=== PATIENT | male | born 2000 | race Caucasian/White ===

== ENCOUNTER 2024-08-09 16:12 | Emergency (ER) | payer OTHER, SELFPAY ==
[2024-08-09 16:21] VITALS: BP 154/86
[2024-08-09 18:18] VITALS: BP 147/79
[2024-08-09] MEDS: VALIUM INJECTION 2 MG IV (19:08)
[2024-08-09] MEDS: TORADOL 30 MG IV (19:08)
--- NOTE | 2024-08-09 19:59 | ED.GENMED ---
History of Present Illness
General
Chief Complaint: Musculo-Skeletal Complaint
Time Seen by Provider: 08/09/24 18:48
History of Present Illness
History of Present Illness:
24-year-old male without significant past medical history presenting for right knee injury. Patient reports prior to arrival he was sitting in a chair and twisted his knee and felt something pop. He has since had inability to bear weight or flex
his knee. Denies numbness or tingling to the extremity. Went to urgent care prior to arrival and was told that he may have a dislocation and was told to come to the hospital. Reports that he has had this issue in the past, however usually goes
back into place after moving his leg. Denies additional injuries or acute medical complaints.
Phy Exam
Physical Exam
Physical Exam:
General: Well-appearing, no clinical signs of dehydration, nontoxic and in no acute distress
HEENT: protecting airway
Neck: appears supple
CV: Normal heart rate
Resp: No accessory muscle use, no increased work of breathing
Abd: No distention
Extremities: No deformity or swelling to the right lower extremity. Limited range of motion secondary to pain. Patella appears to be in place. Distal sensation and pulses intact.
Neuro: alert, no focal neurologic deficit
: deferred
Rectal: deferred
Psych: Normal affect
Skin: Intact
Course
Orders/Labs/Results
Orders:
Orders
08/09/24 18:57
Ketorolac [Toradol] 30 mg IV NOW STA
diazePAM [Valium Injection] 2 mg IV NOW STA
CR Knee - Right 1 Or 2 Views Urgent
Reason For Exam: pain with flexion
08/09/24 21:22
Oxycodone/Acetaminophen [Percocet 5/325] 1 tablet PO NOW STA
08/09/24 21:27
Crutches-Treatment ONCE
Knee Immobilizer Right-Treatme ONCE
Vital Signs
Initial and Last Documented VS:
Initial Vital Signs
Temp Pulse Resp BP Pulse Ox
97.7 F 54 16 154/86 100
08/09/24 16:21 08/09/24 16:21 08/09/24 16:21 08/09/24 16:21 08/09/24 16:21
Last Documented Vital Signs
Temp Pulse Resp BP Pulse Ox
97.7 F 61 16 122/74 100
08/09/24 16:21 08/09/24 22:17 08/09/24 22:17 08/09/24 22:17 08/09/24 22:17
MDM/Problems Addressed
MDM/Problems Addressed:
24-year-old male presenting for right knee injury with inability to flex his knee. Vitals are normal.
On exam, no significant deformity to the knee. No significant swelling. Given patient's difficulty with flexion, suspected meniscal or ligamentous injury. No obvious bony injury or dislocation. Will obtain x-ray imaging. Toradol and Valium
administered for symptoms. Will reassess.
21:30 -reviewed x-rays from urgent care, no fracture or dislocation. X-rays repeated with lateral view, no fracture or dislocation. At this time suspect tendinous injury given patient's symptoms. Ultimately feel stable for discharge with
supportive therapy with knee immobilizer, crutches, pain control. Advise outpatient orthopedic follow-up. Patient has seen an orthopedic in the past and will call tomorrow, explained may need MRI for additional evaluation of the tendons and
ligaments. Patient is requesting pain medication with mother at bedside. Explained that I can prescribe a narcotic, however to be taken only for severe pain ibuprofen. Strict return precautions communicated patient verbalized understanding
*Critical Care Note
Total Time (30-74mins, 75-104mins- exclusive of procedures): Not Applicable
ED Attending Note
-
Portions of this chart may have been created with voice recognition software.� Occasional wrong word or��sound alike� substitutions may have occurred due to the inherent limitations of voice recognition software.
Discharge Plan
Departure
Patient Disposition: Home (Routine Discharge)
Date of Disposition: 08/09/24
Time of Disposition: 21:43
Patient with high blood pressure during this ER visit?: No
Condition: Good
Discharge Problem:
Right knee injury
Instructions: Knee Immobilizer (DC), Knee Sprain (DC)
Prescriptions:
New
oxycodone-acetaminophen [Endocet] 5-325 mg tablet
1 tab PO Q8H PRN (Reason: Pain) Qty: 9 0RF
ibuprofen 800 mg tablet
800 mg PO Q8H PRN (Reason: Pain) Qty: 20 0RF
cyclobenzaprine 10 mg tablet
10 mg PO BID 5 Days Qty: 10 0RF
Referrals:
Dhruv Montez MD [Active] -
UNKNOWN - PT DOES,NOT KNOW [Family Provider] -
Activity Restrictions/Additional Instructions:
You were seen in the emergency department for knee pain
You were found to have normal x-rays of your knee, however you are suspected to have a ligamentous or tendinous injury of your knee. Please follow-up with the orthopedic doctor for potential MRI imaging.
Please follow-up closely with your primary care physician.
Return to the emergency department for any worsening of your symptoms, or any development of chest pain, difficulty breathing, abdominal pain with persistent vomiting and inability to tolerate food or liquid by mouth (concern for dehydration),
weakness, headache or confusion, fever greater than 100.4, or any additional symptoms that are concerning to you.
Thank you for choosing [facility].
Interventions
Interventions:
*Risk Screen - Suicide Last Done: 08/09/24 16:21
*General Assessment Last Done: 08/09/24 18:05
*Neglect/Abuse Screening Last Done: 08/09/24 16:21
ED- Fall Risk Assessment Last Done: 08/09/24 22:28
*ED COVID-19 Vaccine History Last Done: 08/09/24 18:05
*Nursing Disposition Last Done: 08/09/24 22:28
ED-Musculoskeletal Assessment Last Done: 08/09/24 18:05
Discharge Date and Time
Discharge Date/Time: 08/09/24 22:33
Print Language: [id number]
[2024-08-09 20:28] VITALS: BP 127/78
[2024-08-09] MEDS: PERCOCET 5/325 1 TABLET PO (21:47)
[2024-08-09 22:17] VITALS: BP 122/74
== END 2024-08-09 22:33 | disposition home or self-care (01) ==
LOC: EMR 16:12
PROVIDERS: EMERGENCY PHYSICIAN Student in an Organized Health Care Education/Training Program
DX: S89.91XA Unspecified injury of right lower leg, initial encounter (principal); X58.XXXA Exposure to other specified factors, initial encounter
CPT/HCPCS: 99283; 29505; 96374; 96375; 73560

== ENCOUNTER 2024-08-21 06:25 | Day surgery (SDC) | payer OTHER, SELFPAY ==
[2024-08-21] VITALS (10 sets, daily range): BP systolic 120–141; BP diastolic 78–93; BMI 21.8
[2024-08-21] MEDS: TYLENOL 1000 MG PO (13:38)
[2024-08-21] MEDS: NORMOSOL-R/PLASMALYTE-A 1000 IV (13:39)
[2024-08-21] MEDS: CELEBREX 200 MG PO (13:39)
[2024-08-21] MEDS: DILAUDID 0.5 MG IV (15:41)
[2024-08-21] MEDS: ROXICODONE 5 MG PO (17:02)
== END 2024-08-21 17:30 | disposition home or self-care (01) ==
LOC: SDS 06:25
PROVIDERS: ATTENDING PHYSICIAN Specialist
DX: S83.281A Other tear of lateral meniscus, current injury, right knee, initial encounter (principal); X58.XXXA Exposure to other specified factors, initial encounter
CPT/HCPCS: 29882; C1713